=== PATIENT | female | born 1970 | race Caucasian/White ===

== ENCOUNTER → 2020-03-14 10:10 | Outpatient (REF) | payer BC, SELFPAY | LOC: ANHLAB 10:10 | PROVIDERS: PCP Internal Medicine; Visit Provider Nurse Practitioner | DX: R22.9 Localized swelling, mass and lump, unspecified (principal); D23.4 Other benign neoplasm of skin of scalp and neck | CPT/HCPCS: 88304; 88305; 88342 ==

== ENCOUNTER 2022-02-14 15:09 | Emergency (ER) | payer BC, SELFPAY ==
[2022-02-14 15:30] VITALS: BP 150/87; PULSE 74; RESP 18; TEMP 37.6; O2SAT 100
--- NOTE | 2022-02-14 15:30 | ED.URI ---
HPI - URI/Sore Throat General Chief Complaint: Upper Respiratory Infection Stated Complaint: sinus pressure and drainage Time Seen by Provider: 02/14/22 15:33 Source: patient and RN notes reviewed Mode of arrival: ambulatory Limitations: no limitations History of Present Illness HPI Narrative: 51-year-old female presents to [facility] with complaints of sinus pressure and drainage for the past 2 to 3 days. Had taken Advil Cold and Sinus with minimal relief. Denies any cough, chest pain, abdominal pain. No nausea vomiting or diarrhea. Denies any fevers Related Data Home Medications Medication Instructions Recorded Confirmed fexofenadine 180 mg tablet 180 mg PO DAILY 02/17/20 02/14/22 ([facility]) Allergies Allergy/AdvReac Type Severity Reaction Status Date / Time Sulfa (Sulfonamide Allergy Unknown Rash Verified 02/14/22 15:47 Antibiotics) Contrast Media Allergy Rash Uncoded 02/14/22 15:47 MICONAZOLE NITRATE Allergy Unknown Uncoded 02/14/22 15:47 SHELLFISH Allergy Unknown Uncoded 02/14/22 15:47 Review of Systems Review of Systems: All systems reviewed & are unremarkable except as noted in HPI and below Constitutional: Constitutional: Reports no additional constitutional complaints, Denies chills and Denies fever(s) Eyes: Eyes: Reports no additional eye complaints ENT: Reports as per HPI, Denies dizziness, Denies epistaxis, Reports nasal congestion and Reports sore throat Cardiovascular: Cardiovascular: Reports no additional cardiovascular complaints Respiratory: Respiratory: Reports no additional respiratory complaints Gastrointestinal: Gastrointestinal: Reports no additional gastrointestinal complaints Musculoskeletal: Musculoskeletal: Reports no additional musculoskeletal complaints Integumentary/Breasts: Skin/Breast: Reports system reviewed and no additional complaints, except as docu Neurologic: Reports system reviewed and no additional complaints, except as documented Psychiatric: Psychiatric: Reports no additional psychiatric complaints Allergic/Immunologic: Allergic/Immunologic: Reports no additional allergic/immunologic complaints PMFSH Past Medical History Medical History (Updated 02/14/22 @ 16:01 by Catarina Billingsley APRN) History of LEEP (loop electrosurgical excision procedure) of cervix complicating Surgical History Surgical History History of hysterectomy History of lumpectomy History of removal of cyst L arm History of salpingectomy History of tubal ligation Social History Social History (Updated 02/14/22 @ 21:00 by Catarina Billingsley APRN) Gender identity (if verbalized by the patient): Female Comments At the time of my signature, I reviewed and agree with the nursing past medical, surgical, social, and family history. There is no relevant family history pertinent to the patient complaint. Exam Const: General: healthy appearing, no acute distress and alert Nutritional Appearance: well nourished Orientation/consciousness: patient oriented x3 Limitations: no limitations HENMT: Head: normal to inspection Ears: external ears normal Eyes: General: appearance normal, both eyes and all related structures Pupils: Equal, round and reactive pupils present Neck: Neck: normal visual inspection, no lymphadenopathy and no meningeal signs Chest: Chest palpation & inspection: normal inspection of the chest Resp: Effort & Inspection: normal respiratory effort and no use of accessory muscles Auscultation: clear to auscultation bilaterally, no crackles, no rales, no rhonchi and no wheezes Cardio: Rate: regular rate Rhythm: regular rhythm Back/Spine/Pelvis: Cervical Spine: normal cervical lordosis Thoracic/Lumbar Spine: thoracic and lumbar spine normal to inspection Skin: General skin exam: normal color Rashes: no rashes Wounds: no wounds Neuro: General: patient oriented x3, moves all extremi
== END 2022-02-14 16:09 | disposition home or self-care (01) ==
PROVIDERS: Emergency Provider Nurse Practitioner; PCP Internal Medicine
DX: U07.1 COVID-19 (principal)
CPT/HCPCS: 87081; 87426; 87804; 87880; 99213; C9803; G0463

== ENCOUNTER 2022-11-20 14:35 | Outpatient (CLI) | payer BC, SELFPAY ==
--- NOTE | ~2022-11-20 | DEXA_ITS ---
Bone Density Report Name: MALLORY SERRANO Age: 52 Sex: Female Ethnicity: White Date of : 1970 Indication: postmenopausal; screening for osteoporosis; height loss; hysterectomy; Referring Provider: AlanAris Study: Bone densitometry was performed. Exam Date: November 20, 2022 Accession number: [id number] Bone Density: Region BMD T-score Z-score Classification AP Spine (L1-L4) 1.260 1.9 2.8 Normal Femoral Neck (Left) 0.936 0.8 1.7 Normal Total Hip (Left) 1.196 2.1 2.6 Normal Femoral Neck (Right) 0.973 1.1 2.0 Normal Total Hip (Right) 1.150 1.7 2.3 Normal Total Hip Mean 1.173 1.9 2.5 Normal World Health Organization criteria for BMD impression classify patients as: Normal (T-score at or above -1.0), Osteopenia (T-score between -1.0 and -2.5), or Osteoporosis (T-score at or below -2.5). 10-year Fracture Risk: FRAX not reported because: All T-scores for Spine Total, Hip Total, Femoral Neck at or above -1.0 Clinical Information Provided by Patient: Has used the following medications: Vitamin D, Calcium Has the following medical conditions: Hysterectomy Patient maximum height was 68 Menopause Age: 33 No regular weight bearing exercise Does not regularly consume dairy products Drinks caffeinated beverages Onset of menses at age 12 Number of children 2 Impression: The patient has normal bone mass. Discussion: BONE DENSITY IS ABOVE THE MINIMUM DESIRABLE LEVEL AT ALL SKELETAL SITES TESTED. This patient?s bone mineral density is above the minimum desirable level (T-score -1.0 or better) at all sites measured. The patient should follow a healthful lifestyle (good nutrition with adequate calcium and vitamin D, and appropriate weight-bearing exercise). Follow-Up: Consider repeating this study in 5 years or sooner if there is some new clinical indication. Reported by: GEOFFREY on 11/20/2022 2:58:00 PM. Reviewed, dictated and finalized at location [facility]
--- NOTE | ~2022-11-20 | CT_ITS ---
EXAMINATION: CT diagnostic chest wo con DATE: 11/20/2022 15:12 INDICATION: Dyspnea on exertion TECHNIQUE: Computed tomography (CT) of the chest was performed with 100 mL Omnipaque-350 intravenous contrast. Automated exposure control and iterative reconstruction technique were employed. The dose-l ength product was 684.15 mGy-cm. COMPARISON: None. FINDINGS: CHEST: Thoracic aorta: No significant dilation or calcification. Lung parenchyma and airways: Lungs and airways are clear. Thoracic inlet, axillae and chest wall: 2.1 cm calcified right thyroid lobe hypodensity. No soft tiss ue mass. No axillary lymphadenopathy. Mediastinum: No mass or lymphadenopathy. Heart and pericardium: Normal heart size. No pericardial effusion. Coronary artery calcifications: . Pleura: No effusion or mass. Upper abdomen: Cholelithiasis without findings of cholecystitis. Left renal atrophy. Thoracic bones: No acute osseous finding in the chest. IMPRESSION: 2.1 cm right thyroid nodule, recommend thyroid ultrasound for further characterization. No acute or c hronic intrathoracic process detected. Cholelithiasis. Left renal atrophy. Reviewed, dictated and finalized at location K. IMPRESSION: 2.1 cm right thyroid nodule, recommend thyroid ultrasound for further character ization. No acute or chronic intrathoracic process detected. Cholelithiasis. Le ft renal atrophy.
== END 2022-11-20 14:36 ==
LOC: MICIMG 14:36
PROVIDERS: PCP Internal Medicine; Visit Provider Internal Medicine
DX: R06.09 Other forms of dyspnea (principal); Z13.820 Encounter for screening for osteoporosis; Z78.0 Asymptomatic menopausal state; E04.1 Nontoxic single thyroid nodule
CPT/HCPCS: 71250; 77080